=== PATIENT | male | born 1980 | race Caucasian/White ===

== ENCOUNTER 2020-11-21 15:29 | Outpatient (RCR) | payer OTHER, SELFPAY ==
[2017-02-03 20:23] VITALS: BMI 31.5
== END 2021-02-03 23:59 ==
LOC: IMMUN 15:29
PROVIDERS: Referring Provider Family Medicine; Visit Provider Family Medicine
DX: Z23 Encounter for immunization (principal)
CPT/HCPCS: 0001A; 0002A; 91300